=== PATIENT | female | born 1980 | race Caucasian/White ===

== ENCOUNTER 2016-12-17 11:24 | Emergency (ER) | payer SELFPAY ==
[~2016-12-17] VITALS: Ht 165.1 cm; Wt 67.3 kg
[2016-12-17 11:27] VITALS: TEMP 98.1
[2016-12-17 12:13] LABS: BASO # 0.1 (0.0-0.2); BASO % 0.8 % (0.0-2.0); EOS # 0.2 (0.0-0.7); EOS % 1.8 % (0-4.0); GRAN # 5.5 (1.4-6.5); GRAN % 51.2 % (42.2-75.2); LYMPH # 3.8 (1.2-3.4); LYMPH % 35.2 % (20.0-51.0); MEAN CELL VOLUME 86 fl (80.0-100.0); MEAN CORPUSCULAR HEMOGLOBIN 29 pg (27.0-31.0); MEAN CORPUSCULAR HGB CONC 34 g/dl (33.0-37.0); MEAN PLATELET VOLUME 11.9 fl (7.4-10.4); MONO # 1.1 (0.1-0.6); MONO % 10.7 % (1.7-9.3); PLATELET COUNT 228 K/mm3 (130-400); RED BLOOD COUNT 4.79 M/mm3 (4.10-5.30); REDCELL DISTRIBUTION WIDTH-CV 12.7 % (11.5-14.5); WHITE BLOOD COUNT 10.6 K/mm3 (4.8-10.8)
[2016-12-17 12:23] LABS: ADJUSTED CALCIUM 8.9 mg/dL (8.4-10.2); ALANINE AMINOTRANSFERASE 26 U/L (9-52); ALBUMIN 4.4 gm/dL (3.5-5.0); ALKALINE PHOSPHATASE 40 U/L (50-136); ANION GAP 14 mmol/L (7-16); BILIRUBIN,TOTAL 0.6 mg/dL (0.0-1.0); BLOOD UREA NITROGEN 14 mg/dL (7-17); CALCIUM 9.2 mg/dL (8.4-10.2); CARBON DIOXIDE 25 mmol/L (22-30); CHLORIDE 101 mmol/L (98-107); CREATININE, serum 0.68 mg/dL (0.52-1.25); GLUCOSE 87 mg/dL (74-106); POTASSIUM 3.8 mmol/L (3.4-5.0); SODIUM 140 mmol/L (137-145); TOTAL PROTEIN 7.4 gm/dL (6.4-8.2)
[2016-12-17 12:24] LABS: C-REACTIVE PROTEIN < 0.5 mg/dL (0.0-0.9)
[2016-12-17] MEDS ORDERED: IMITREX100 MG PO (13:32)
[2016-12-17] MEDS ORDERED: DEPAKOTE500 MG PO (13:32)
[2016-12-17] MEDS ORDERED: KLONOPIN 0.5MG0.5 MG PO (13:33)
[2016-12-17] MEDS ORDERED: ZOFRAN 4MG T4 MG/TAB PO (13:33)
[2016-12-17 14:41] VITALS: BP 102/68; PULSE 65
== END 2016-12-17 14:42 | disposition home or self-care (01) ==
LOC: COL.ER 11:24
PROVIDERS: Emergency Medicine
DX: G43.909 Migraine, unspecified, not intractable, without status migrainosus (principal); G40.909 Epilepsy, unspecified, not intractable, without status epilepticus
CPT/HCPCS: J1885; J2060; J2405; J7030

== ENCOUNTER 2019-01-28 22:14 | Emergency (ER) | payer OTHER ==
[~2019-01-28] VITALS: Ht 167.6 cm; Wt 65.5 kg
[~2019-01-28 22:14] MED LIST: DEPAKOTE500 MG PO; IMITREX100 MG PO; KLONOPIN 0.5MG0.5 MG PO; ZOFRAN 4MG T4 MG/TAB PO
[2019-01-28 22:17] VITALS: TEMP 97.4
[2019-01-28] MEDS ORDERED: TOPAMAX 25MG25 M1 PO (22:35)
[2019-01-29 02:15] VITALS: BP 96/63; PULSE 67
== END 2019-01-29 02:17 | disposition home or self-care (01) ==
LOC: COL.ER 22:14
DX: G43.909 Migraine, unspecified, not intractable, without status migrainosus (principal); F17.210 Nicotine dependence, cigarettes, uncomplicated; Z88.6 Allergy status to analgesic agent; Z88.0 Allergy status to penicillin
CPT/HCPCS: J1200; J1885; J2765; J3360; J7030

== ENCOUNTER 2019-03-29 09:40 | Emergency (ER) | payer OTHER ==
[~2019-03-29] VITALS: Ht 167.6 cm; Wt 65.0 kg
[~2019-03-29 09:40] MED LIST changes: +TOPAMAX 25MG25 M1 PO
[2019-03-29 09:44] VITALS: BP 105/69; TEMP 97.1
[2019-03-29] MEDS ORDERED: PHENERGAN 25 TA25 MG PO ×2 (10:05)
[2019-03-29] MEDS ORDERED: ZITHROMAX Z PA250 MG PO ×2 (10:05)
[2019-03-29 10:47] LABS: ALANINE AMINOTRANSFERASE 16 U/L (9-52); ALBUMIN 4.6 gm/dL (3.5-5.0); ALKALINE PHOSPHATASE 55 U/L (50-136); ANION GAP 12 mmol/L (7-16); AST,SGOT 27 U/L (15-37); BILIRUBIN,TOTAL 0.3 mg/dL (0.0-1.0); BLOOD UREA NITROGEN 16 mg/dL (7-17); CALCIUM 9.6 mg/dL (8.4-10.2); CARBON DIOXIDE 23 mmol/L (22-30); CHLORIDE 105 mmol/L (98-107); CREATININE, serum 0.76 (0.52-1.25); GLUCOSE 94 mg/dL (74-106); LIPASE 186 U/L (23-300); POTASSIUM 3.7 mmol/L (3.4-5.0); SODIUM 140 mmol/L (137-145); TOTAL PROTEIN 7.6 gm/dL (6.4-8.2)
[2019-03-29 10:49] LABS: BASO # 0.1 (0.0-0.2); BASO % 0.7 % (0.0-2.0); EOS # 0.2 (0.0-0.7); EOS % 1.8 % (0-4.0); GRAN # 5.8 (1.4-6.5); GRAN % 53.3 % (42.2-75.2); HEMATOCRIT 42.7 % (37.0-47.0); HEMOGLOBIN 14.3 g/dl (12.5-16.0); LYMPH # 3.8 (1.2-3.4); LYMPH % 35.4 % (20.0-51.0); MEAN CELL VOLUME 84 fl (80.0-100.0); MEAN CORPUSCULAR HEMOGLOBIN 28 pg (27.0-31.0); MEAN CORPUSCULAR HGB CONC 34 g/dl (33.0-37.0); MONO # 0.9 (0.1-0.6); MONO % 8.5 % (1.7-9.3); PLATELET COUNT 291 K/mm3 (130-400); RED BLOOD COUNT 5.08 M/mm3 (4.10-5.30); REDCELL DISTRIBUTION WIDTH-CV 13.3 % (11.5-14.5)
[2019-03-29 10:59] LABS: TROPONIN-I < 0.012 ng/mL (0.000-0.035)
[2019-03-29 12:17] VITALS: PULSE 75
== END 2019-03-29 12:17 | disposition home or self-care (01) ==
LOC: COL.ER 09:40
PROVIDERS: Emergency Medicine
DX: J40 Bronchitis, not specified as acute or chronic (principal); F17.210 Nicotine dependence, cigarettes, uncomplicated
CPT/HCPCS: J1200; J1885; J2765; J7030

== ENCOUNTER → 2019-05-18 | Outpatient (CLI) | payer OTHER ==
[~2019-05-18] MED LIST changes: +PHENERGAN 25 TA25 MG PO; +ZITHROMAX Z PA250 MG PO
== END ==
LOC: COL.RAD 16:17
DX: R05 Cough (principal)

== ENCOUNTER → 2019-05-19 | Outpatient (CLI) | payer OTHER | LOC: ZCOL.LAB 16:55 | DX: J02.9 Acute pharyngitis, unspecified (principal) ==